=== PATIENT | female | born 1985 | race Caucasian/White ===

== ENCOUNTER 2019-08-08 15:59 | Emergency (ER) | payer OTHER ==
[~2019-08-08] VITALS: Ht 162.6 cm; Wt 68.0 kg
[~2019-08-08 15:59] MED LIST: CELEXA40 MG PO; DIFLUCAN150 MG PO; MIRENA; NORCO 7.5-3251 EACH; VENTOLIN HFA INH8 GM INH
[2019-08-08 16:08] VITALS: BP 120/81
[2019-08-08] MEDS ORDERED: SEROQUEL 25 MG25 MG PO (16:17)
[2019-08-08] MEDS ORDERED: TYLENOL WITH CO1 TA1 PO (16:18)
[2019-08-08] MEDS ORDERED: MEDROLDOSEPACK PO (16:24)
[2019-08-08] MEDS ORDERED: NORCO 5-325 TA1 EAC1 PO (16:24)
== END 2019-08-08 16:40 | disposition home or self-care (01) ==
LOC: M.ERS 15:59
DX: M54.5 Low back pain (principal); F17.210 Nicotine dependence, cigarettes, uncomplicated; Z90.49 Acquired absence of other specified parts of digestive tract; Z98.890 Other specified postprocedural states